=== PATIENT | female | born 1970 | race Caucasian/White ===

== ENCOUNTER → 2017-05-08 13:47 | Outpatient (CLI) | payer OTHER ==
[2017-05-08 14:28] LABS: BASOPHILS 0.2 % (0-2); EOSINOPHILS 1.2 % (0-7); HEMATOCRIT 39.5 % (36.0-48.0); HEMOGLOBIN 13.1 g/dL (12-16); IMMATURE GRANULOCYTES 0.2 % (0-5); LYMPHOCYTES 32.5 % (15-50); MCHC 33.2 g/dL (31.0-37.0); MCV 96.3 fL (80.0-100.0); MEAN PLATELET VOLUME 10.8 fL (7.4-10.4); MONOCYTES 8.9 % (2-11); PLATELET COUNT 265 10x3/uL (130-400); RDW 12.7 % (11.5-14.5); WBC 5.1 10x3/uL (4.8-10.8)
[2017-05-08 14:46] LABS: ALBUMIN 3.5 g/dL (3.4-5.0); ALKALINE PHOSPHATASE 90 U/L (46-116); ALT (SGPT) 18 U/L (10-68); BILIRUBIN - TOTAL 0.27 mg/dL (0.2-1.3); CALC OSMOLALITY 277 mosm/kg (275-300); CALCIUM 9.1 mg/dL (8.5-10.1); CARBON DIOXIDE 28.6 mmol/L (21.0-32.0); CHLORIDE - SERUM 102 mmol/L (98-107); CREATININE - SERUM 0.8 mg/dL (0.6-1.3); GLUCOSE 108 mg/dL (74-106); POTASSIUM - SERUM 3.5 mmol/L (3.5-5.1); PROTEIN - SERUM 7.8 g/dL (6.4-8.2); SODIUM 139 mmol/L (136-145); UREA NITROGEN 10 mg/dL (7-18); eGFR NON AFRICAN AMERICAN 82 mL/min (90-120)
[2017-05-08 15:36] LABS: ERYTHROCYTE SEDIMENTATION RATE 24 mm/hr (0-20)
== END | disposition home or self-care (01) ==
LOC: D.LAB 13:47
PROVIDERS: Internal Medicine Gastroenterology
DX: K50.90 Crohn's disease, unspecified, without complications (principal); Z15.09 Genetic susceptibility to other malignant neoplasm

== ENCOUNTER → 2017-07-08 09:09 | Outpatient (CLI) | payer OTHER ==
[2017-07-08 09:42] LABS: BASOPHILS 0.2 % (0-2); EOSINOPHILS 0.6 % (0-7); HEMATOCRIT 39.1 % (36.0-48.0); HEMOGLOBIN 12.7 g/dL (12-16); IMMATURE GRANULOCYTES 0.4 % (0-5); LYMPHOCYTES 33.3 % (15-50); MCH 32.1 pg (26.0-34.0); MCHC 32.5 g/dL (31.0-37.0); MCV 98.7 fL (80.0-100.0); MEAN PLATELET VOLUME 10.6 fL (7.4-10.4); MONOCYTES 9.4 % (2-11); NEUTROPHILS 56.1 % (40-80); PLATELET COUNT 278 10x3/uL (130-400); RBC 3.96 10x6/uL (4.00-5.40); RDW 13.5 % (11.5-14.5); WBC 5.4 10x3/uL (4.8-10.8)
[2017-07-08 09:56] LABS: ALBUMIN 3.5 g/dL (3.4-5.0); BILIRUBIN - DIRECT 0.06 mg/dL (0.00-0.30); BILIRUBIN - INDIRECT 0.27 mg/dL (0.00-1.00); BILIRUBIN - TOTAL 0.33 mg/dL (0.2-1.3); PROTEIN - SERUM 7.5 g/dL (6.4-8.2)
== END | disposition home or self-care (01) ==
LOC: D.LAB 08:00
PROVIDERS: Internal Medicine Gastroenterology
DX: K50.90 Crohn's disease, unspecified, without complications (principal); Z51.81 Encounter for therapeutic drug level monitoring; Z79.899 Other long term (current) drug therapy

== ENCOUNTER → 2017-10-06 08:41 | Outpatient (CLI) | payer OTHER ==
[2017-10-06 09:22] LABS: BASOPHILS 0.2 % (0-2); EOSINOPHILS 0.5 % (0-7); HEMATOCRIT 38.3 % (36.0-48.0); HEMOGLOBIN 12.7 g/dL (12-16); IMMATURE GRANULOCYTES 0.2 % (0-5); LYMPHOCYTES 30.5 % (15-50); MCHC 33.2 g/dL (31.0-37.0); MCV 96.5 fL (80.0-100.0); MEAN PLATELET VOLUME 10.5 fL (7.4-10.4); MONOCYTES 9.8 % (2-11); NEUTROPHILS 58.8 % (40-80); PLATELET COUNT 286 10x3/uL (130-400); RBC 3.97 10x6/uL (4.00-5.40); RDW 12.8 % (11.5-14.5); WBC 5.5 10x3/uL (4.8-10.8)
[2017-10-06 09:45] LABS: ALBUMIN 3.5 g/dL (3.4-5.0); BILIRUBIN - DIRECT 0.08 mg/dL (0.00-0.30); BILIRUBIN - INDIRECT 0.22 mg/dL (0.00-1.00); BILIRUBIN - TOTAL 0.3 mg/dL (0.2-1.3); PROTEIN - SERUM 7.2 g/dL (6.4-8.2)
== END | disposition home or self-care (01) ==
LOC: D.LAB 08:00
PROVIDERS: Internal Medicine Gastroenterology
DX: K50.90 Crohn's disease, unspecified, without complications (principal); Z51.81 Encounter for therapeutic drug level monitoring; Z79.899 Other long term (current) drug therapy

== ENCOUNTER → 2018-01-05 09:31 | Outpatient (CLI) | payer OTHER ==
[2018-01-05 10:06] LABS: BASOPHILS 0.3 % (0-2); EOSINOPHILS 0.6 % (0-7); HEMATOCRIT 38.7 % (36.0-48.0); HEMOGLOBIN 12.9 g/dL (12-16); IMMATURE GRANULOCYTES 0.3 % (0-5); MCH 31.9 pg (26.0-34.0); MCHC 33.3 g/dL (31.0-37.0); MCV 95.6 fL (80.0-100.0); MEAN PLATELET VOLUME 10.5 fL (7.4-10.4); MONOCYTES 7.4 % (2-11); NEUTROPHILS 64.4 % (40-80); PLATELET COUNT 287 10x3/uL (130-400); RBC 4.05 10x6/uL (4.00-5.40); RDW 12.8 % (11.5-14.5); WBC 6.3 10x3/uL (4.8-10.8)
[2018-01-05 10:20] LABS: ALBUMIN 3.4 g/dL (3.4-5.0); BILIRUBIN - INDIRECT 0.23 mg/dL (0.00-1.00); BILIRUBIN - TOTAL 0.28 mg/dL (0.2-1.3); PROTEIN - SERUM 7.4 g/dL (6.4-8.2)
[2018-01-05 10:23] LABS: BILIRUBIN - DIRECT 0.05 mg/dL (0.00-0.30)
== END | disposition home or self-care (01) ==
LOC: D.LAB 08:00
PROVIDERS: Internal Medicine Gastroenterology
DX: K50.90 Crohn's disease, unspecified, without complications (principal); Z51.81 Encounter for therapeutic drug level monitoring; Z79.899 Other long term (current) drug therapy

== ENCOUNTER → 2018-04-07 07:30 | Outpatient (CLI) | payer OTHER ==
[2018-04-07 08:05] LABS: BASOPHILS 0.4 % (0-2); HEMATOCRIT 37.8 % (36.0-48.0); HEMOGLOBIN 12.7 g/dL (12-16); IMMATURE GRANULOCYTES 0.2 % (0-5); LYMPHOCYTES 28.9 % (15-50); MCH 31.8 pg (26.0-34.0); MCHC 33.6 g/dL (31.0-37.0); MCV 94.5 fL (80.0-100.0); MEAN PLATELET VOLUME 10.7 fL (7.4-10.4); MONOCYTES 8.4 % (2-11); NEUTROPHILS 61.1 % (40-80); PLATELET COUNT 270 10x3/uL (130-400); RDW 12.9 % (11.5-14.5); WBC 4.8 10x3/uL (4.8-10.8)
[2018-04-07 08:14] LABS: ALBUMIN 3.5 g/dL (3.4-5.0); BILIRUBIN - DIRECT 0.06 mg/dL (0.00-0.30); BILIRUBIN - INDIRECT 0.33 mg/dL (0.00-1.00); BILIRUBIN - TOTAL 0.39 mg/dL (0.2-1.3); PROTEIN - SERUM 7.7 g/dL (6.4-8.2)
== END | disposition home or self-care (01) ==
LOC: D.LAB 07:30
PROVIDERS: Internal Medicine Gastroenterology
DX: K50.90 Crohn's disease, unspecified, without complications (principal); Z51.81 Encounter for therapeutic drug level monitoring; Z79.899 Other long term (current) drug therapy

== ENCOUNTER → 2018-07-08 13:12 | Outpatient (CLI) | payer BC ==
[2018-07-08 13:50] LABS: BASOPHILS 0.3 % (0-2); EOSINOPHILS 0.8 % (0-7); HEMATOCRIT 37.4 % (36.0-48.0); HEMOGLOBIN 12.2 g/dL (12-16); IMMATURE GRANULOCYTES 0.2 % (0-5); LYMPHOCYTES 30.5 % (15-50); MCH 31.2 pg (26.0-34.0); MCHC 32.6 g/dL (31.0-37.0); MCV 95.7 fL (80.0-100.0); MEAN PLATELET VOLUME 10.2 fL (7.4-10.4); MONOCYTES 9.6 % (2-11); NEUTROPHILS 58.6 % (40-80); PLATELET COUNT 282 10x3/uL (130-400); RBC 3.91 10x6/uL (4.00-5.40); RDW 13.3 % (11.5-14.5); WBC 6.5 10x3/uL (4.8-10.8)
[2018-07-08 14:07] LABS: ALBUMIN 3.3 g/dL (3.4-5.0); BILIRUBIN - DIRECT 0.09 mg/dL (0.00-0.30); BILIRUBIN - INDIRECT 0.14 mg/dL (0.00-1.00); BILIRUBIN - TOTAL 0.23 mg/dL (0.2-1.3); PROTEIN - SERUM 7.7 g/dL (6.4-8.2)
== END | disposition home or self-care (01) ==
LOC: D.LAB 13:12
PROVIDERS: Internal Medicine Gastroenterology
DX: Z51.81 Encounter for therapeutic drug level monitoring (principal); Z79.899 Other long term (current) drug therapy; K50.90 Crohn's disease, unspecified, without complications

== ENCOUNTER → 2018-10-06 12:48 | Outpatient (CLI) | payer BC ==
[2018-10-06 13:16] LABS: BASOPHILS 0.3 % (0-2); EOSINOPHILS 0.6 % (0-7); HEMATOCRIT 35.9 % (36.0-48.0); HEMOGLOBIN 12.1 g/dL (12-16); IMMATURE GRANULOCYTES 0.2 % (0-5); LYMPHOCYTES 27.4 % (15-50); MCH 31.6 pg (26.0-34.0); MCHC 33.7 g/dL (31.0-37.0); MCV 93.7 fL (80.0-100.0); MEAN PLATELET VOLUME 10.2 fL (7.4-10.4); NEUTROPHILS 62.5 % (40-80); PLATELET COUNT 273 10x3/uL (130-400); RBC 3.83 10x6/uL (4.00-5.40); RDW 13.3 % (11.5-14.5); WBC 6.6 10x3/uL (4.8-10.8)
[2018-10-06 13:46] LABS: ALBUMIN 3.4 g/dL (3.4-5.0); BILIRUBIN - DIRECT 0.06 mg/dL (0.00-0.30); BILIRUBIN - INDIRECT 0.25 mg/dL (0.00-1.00); BILIRUBIN - TOTAL 0.31 mg/dL (0.2-1.3); PROTEIN - SERUM 7.2 g/dL (6.4-8.2)
== END | disposition home or self-care (01) ==
LOC: D.LAB 12:48
PROVIDERS: Internal Medicine Gastroenterology
DX: K50.90 Crohn's disease, unspecified, without complications (principal); Z51.81 Encounter for therapeutic drug level monitoring; Z79.899 Other long term (current) drug therapy

== ENCOUNTER → 2019-01-05 13:54 | Outpatient (CLI) | payer BC ==
[2019-01-05 14:23] LABS: BASOPHILS 0.3 % (0-2); EOSINOPHILS 0.7 % (0-7); HEMATOCRIT 37.4 % (36.0-48.0); HEMOGLOBIN 12.7 g/dL (12-16); IMMATURE GRANULOCYTES 0.1 % (0-5); LYMPHOCYTES 29.5 % (15-50); MCH 31.8 pg (26.0-34.0); MCV 93.5 fL (80.0-100.0); MEAN PLATELET VOLUME 10.1 fL (7.4-10.4); MONOCYTES 8.1 % (2-11); NEUTROPHILS 61.3 % (40-80); PLATELET COUNT 289 10x3/uL (130-400); RDW 13.3 % (11.5-14.5); WBC 7.4 10x3/uL (4.8-10.8)
[2019-01-05 14:54] LABS: ALBUMIN 3.4 g/dL (3.4-5.0); BILIRUBIN - DIRECT 0.11 mg/dL (0.00-0.30); BILIRUBIN - INDIRECT 0.22 mg/dL (0.00-1.00); BILIRUBIN - TOTAL 0.33 mg/dL (0.2-1.3); PROTEIN - SERUM 7.1 g/dL (6.4-8.2)
== END | disposition home or self-care (01) ==
LOC: D.LAB 08:00
PROVIDERS: ATTEND Internal Medicine Gastroenterology
DX: K50.90 Crohn's disease, unspecified, without complications (principal)

== ENCOUNTER → 2019-04-07 08:53 | Outpatient (CLI) | payer BC ==
[2019-04-07 09:28] LABS: BASOPHILS 0.4 % (0-2); EOSINOPHILS 0.7 % (0-7); HEMATOCRIT 39.4 % (36.0-48.0); HEMOGLOBIN 12.9 g/dL (12-16); IMMATURE GRANULOCYTES 0.2 % (0-5); MCH 31.8 pg (26.0-34.0); MCHC 32.7 g/dL (31.0-37.0); MEAN PLATELET VOLUME 10.4 fL (7.4-10.4); MONOCYTES 8.5 % (2-11); NEUTROPHILS 65.2 % (40-80); PLATELET COUNT 296 10x3/uL (130-400); RBC 4.06 10x6/uL (4.00-5.40); RDW 13.1 % (11.5-14.5); WBC 5.6 10x3/uL (4.8-10.8)
[2019-04-07 09:47] LABS: ALBUMIN 3.7 g/dL (3.4-5.0); BILIRUBIN - DIRECT 0.08 mg/dL (0.00-0.30); BILIRUBIN - INDIRECT 0.29 mg/dL (0.00-1.00); BILIRUBIN - TOTAL 0.37 mg/dL (0.2-1.3); PROTEIN - SERUM 7.5 g/dL (6.4-8.2)
== END | disposition home or self-care (01) ==
LOC: D.LAB 08:00
PROVIDERS: ATTEND Internal Medicine Gastroenterology
DX: K50.90 Crohn's disease, unspecified, without complications (principal); Z79.899 Other long term (current) drug therapy

== ENCOUNTER → 2019-07-08 09:25 | Outpatient (CLI) | payer BC ==
[2019-07-08 09:58] LABS: BASOPHILS 0.4 % (0-2); EOSINOPHILS 1.2 % (0-7); HEMATOCRIT 38.3 % (36.0-48.0); HEMOGLOBIN 12.5 g/dL (12-16); IMMATURE GRANULOCYTES 0.2 % (0-5); LYMPHOCYTES 30.1 % (15-50); MCH 31.8 pg (26.0-34.0); MCHC 32.6 g/dL (31.0-37.0); MCV 97.5 fL (80.0-100.0); MONOCYTES 8.9 % (2-11); NEUTROPHILS 59.2 % (40-80); PLATELET COUNT 285 10x3/uL (130-400); RBC 3.93 10x6/uL (4.00-5.40); RDW 13.2 % (11.5-14.5); WBC 5.2 10x3/uL (4.8-10.8)
[2019-07-08 10:12] LABS: ALBUMIN 3.2 g/dL (3.4-5.0); BILIRUBIN - DIRECT 0.05 mg/dL (0.00-0.30); BILIRUBIN - INDIRECT 0.17 mg/dL (0.00-1.00); BILIRUBIN - TOTAL 0.22 mg/dL (0.2-1.3); PROTEIN - SERUM 7.3 g/dL (6.4-8.2)
== END | disposition home or self-care (01) ==
LOC: D.LAB 09:25
PROVIDERS: ATTEND Internal Medicine Gastroenterology
DX: K50.90 Crohn's disease, unspecified, without complications (principal); Z79.899 Other long term (current) drug therapy

== ENCOUNTER → 2019-10-07 14:01 | Outpatient (CLI) | payer BC ==
[2019-10-07 14:41] LABS: BASOPHILS 0.2 % (0-2); EOSINOPHILS 0.6 % (0-7); HEMATOCRIT 38.2 % (36.0-48.0); HEMOGLOBIN 12.4 g/dL (12-16); IMMATURE GRANULOCYTES 0.2 % (0-5); MCH 32.2 pg (26.0-34.0); MCHC 32.5 g/dL (31.0-37.0); MCV 99.2 fL (80.0-100.0); MONOCYTES 8.6 % (2-11); NEUTROPHILS 61.4 % (40-80); PLATELET COUNT 269 10x3/uL (130-400); RBC 3.85 10x6/uL (4.00-5.40); RDW 13.1 % (11.5-14.5); WBC 6.5 10x3/uL (4.8-10.8)
[2019-10-07 15:12] LABS: ALBUMIN 3.4 g/dL (3.4-5.0); BILIRUBIN - DIRECT 0.07 mg/dL (0.00-0.30); BILIRUBIN - INDIRECT 0.16 mg/dL (0.00-1.00); BILIRUBIN - TOTAL 0.23 mg/dL (0.2-1.3); PROTEIN - SERUM 7.1 g/dL (6.4-8.2)
== END | disposition home or self-care (01) ==
LOC: D.LAB 14:01
PROVIDERS: ATTEND Internal Medicine Gastroenterology
DX: K50.90 Crohn's disease, unspecified, without complications (principal); Z79.899 Other long term (current) drug therapy

== ENCOUNTER → 2020-01-06 11:19 | Outpatient (CLI) | payer BC ==
[2020-01-06 11:42] LABS: BASOPHILS 0.4 % (0-2); EOSINOPHILS 0.6 % (0-7); HEMATOCRIT 40.3 % (36.0-48.0); HEMOGLOBIN 13.2 g/dL (12-16); IMMATURE GRANULOCYTES 0.1 % (0-5); LYMPHOCYTES 22.8 % (15-50); MCH 31.9 pg (26.0-34.0); MCHC 32.8 g/dL (31.0-37.0); MCV 97.3 fL (80.0-100.0); MEAN PLATELET VOLUME 9.9 fL (7.4-10.4); MONOCYTES 7.6 % (2-11); NEUTROPHILS 68.5 % (40-80); PLATELET COUNT 295 10x3/uL (130-400); RBC 4.14 10x6/uL (4.00-5.40); WBC 6.8 10x3/uL (4.8-10.8)
[2020-01-06 11:58] LABS: ALBUMIN 3.5 g/dL (3.4-5.0); BILIRUBIN - DIRECT 0.08 mg/dL (0.00-0.30); BILIRUBIN - INDIRECT 0.24 mg/dL (0.00-1.00); BILIRUBIN - TOTAL 0.32 mg/dL (0.2-1.3); PROTEIN - SERUM 7.9 g/dL (6.4-8.2)
== END | disposition home or self-care (01) ==
LOC: D.LAB 11:19
PROVIDERS: ATTEND Internal Medicine Gastroenterology
DX: K50.90 Crohn's disease, unspecified, without complications (principal); Z79.899 Other long term (current) drug therapy

== ENCOUNTER → 2020-10-06 13:19 | Outpatient (CLI) | payer BC ==
[2020-10-06 13:36] LABS: BASOPHILS 0.3 % (0-2); EOSINOPHILS 0.7 % (0-7); HEMOGLOBIN 12.3 g/dL (12-16); IMMATURE GRANULOCYTES 0.1 % (0-5); LYMPHOCYTE ABS# 2.03 10x3/uL (1.18-3.74); LYMPHOCYTES 30.3 % (15-50); MCH 32.4 pg (26.0-34.0); MCHC 33.2 g/dL (31.0-37.0); MCV 97.4 fL (80.0-100.0); MEAN PLATELET VOLUME 10.3 fL (7.4-10.4); MONOCYTES 8.8 % (2-11); NEUTROPHIL ABS# 4.01 10x3/uL (1.56-6.13); NEUTROPHILS 59.8 % (40-80); PLATELET COUNT 292 10x3/uL (130-400); RDW 13.3 % (11.5-14.5); WBC 6.7 10x3/uL (4.8-10.8)
[2020-10-06 13:54] LABS: ALBUMIN 3.5 g/dL (3.4-5.0); BILIRUBIN - DIRECT 0.1 mg/dL (0.00-0.30); BILIRUBIN - INDIRECT 0.24 mg/dL (0.00-1.00); BILIRUBIN - TOTAL 0.34 mg/dL (0.2-1.3); PROTEIN - SERUM 7.6 g/dL (6.4-8.2)
== END | disposition home or self-care (01) ==
LOC: D.LAB 13:19
PROVIDERS: ATTEND Internal Medicine Gastroenterology
DX: K50.10 Crohn's disease of large intestine without complications (principal); Z79.899 Other long term (current) drug therapy